=== PATIENT | male | born 1990 | race American Indian/Alaskan Native ===

== ENCOUNTER 2021-01-04 15:12 | Emergency (ER) | payer SELFPAY ==
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
== END 2021-01-04 17:48 | disposition home or self-care (01) ==
LOC: ED 15:12
CPT/HCPCS: 99282